=== PATIENT | female | born 1960 | race African-American/Black ===

== ENCOUNTER 2019-03-25 14:05 | Emergency (ER) | payer OTHER ==
[~2019-03-25] VITALS: Ht 172.7 cm; Wt 90.0 kg
[2019-03-25 15:34] VITALS: BP 146/72
[2019-03-25] MEDS ORDERED: ACETAMINOPHEN 325MG TABLET PO ONE (18:15)
== END 2019-03-25 18:41 | disposition home or self-care (01) ==
LOC: ER 18:39
DX: S10.93XA Contusion of unspecified part of neck, initial encounter (principal); S30.0XXA Contusion of lower back and pelvis, initial encounter; K21.9 Gastro-esophageal reflux disease without esophagitis; V43.52XA Car driver injured in collision with other type car in traffic accident, initial encounter; Y93.89 Activity, other specified; Y92.488 Other paved roadways as the place of occurrence of the external cause
CPT/HCPCS: 99282

== ENCOUNTER 2023-03-31 21:45 | Emergency (ER) | payer OTHER, MEDICAID ==
[~2023-03-31] VITALS: Ht 172.7 cm; Wt 82.0 kg
[2023-03-31 22:48] VITALS: BP 126/73; O2SAT 96
[2023-04-01] MEDS ORDERED: DOXY100T28 MT ×3 (00:59→02:08)
[2023-04-01] MEDS ORDERED: HYDR30CR80 TP ×3 (00:59→02:08)
[2023-04-01] MEDS ORDERED: NAPR-681 PO ×3 (00:59→02:08)
[2023-04-01] MEDS ORDERED: CETI10TA6 MT ×3 (00:59→02:08)
[2023-04-01 01:05] VITALS: PULSE 71; RESP 16; TEMP 97.9
== END 2023-04-01 01:06 | disposition home or self-care (01) ==
LOC: ER 21:45
DX: S60.862A Insect bite (nonvenomous) of left wrist, initial encounter (principal); L03.114 Cellulitis of left upper limb; W57.XXXA Bitten or stung by nonvenomous insect and other nonvenomous arthropods, initial encounter; Y93.89 Activity, other specified; Y92.89 Other specified places as the place of occurrence of the external cause; Y99.8 Other external cause status
CPT/HCPCS: 99283